=== PATIENT | female | born 1990 ===

== ENCOUNTER 2018-05-04 21:11 | Observation (INO) | payer OTHER ==
[2018-05-04] MEDS ORDERED: MOTRIN 800800 MG/TAB PO (23:12)
[2018-05-04] MEDS ORDERED: TYLENOL 325MG325 MG PO (23:13)
[2018-05-04] MEDS ORDERED: PRENATAL PO (23:14)
[2018-05-04] MEDS ORDERED: BENADRYL50 MG PO (23:15)
--- NOTE | 2018-05-04 23:15 | NUR ---
PT ADMITTED TO ROOM 309. ARTIE JOSHI AWARE PT HERE AND PLANNING ON SEEING PT SHORTLY. PT WAS ASSISTED TO GET COMFORTABLE AND SITUATED. HAS NOTED C/O HEADACHE. IV FLUIDS STARTED. WILL ADMINSITER PRN MEDS SOON ORDER IS AVALIBLE.
[2018-05-04] MEDS ORDERED: BENADRYL25 M2 PO (23:16)
[2018-05-04 23:19] VITALS: BP 143/83; PULSE 78; TEMP 98.5
[2018-05-05 04:49] VITALS: BP 118/68; PULSE 84; TEMP 98.4
--- NOTE | 2018-05-05 05:12 | NUR ---
PT HAD UNEVENTFUL NOC. NEEDED PRN MEDS AT BEDTIME FOR HEADACHE, PAIN WAS RESOLVED AND PT WAS ABLE TO GET SOME SLEEP. NO OTHER ISSUES VOICED OVERNIGHT.
[2018-05-05 06:33] LABS: BASO # 0.1 (0.0-0.2); BASO % 0.7 % (0.0-2.0); EOS # 0.4 (0.0-0.7); EOS % 5.2 % (0-4.0); GRAN # 3.9 (1.4-6.5); HEMOGLOBIN 10.2 g/dl (12.5-16.0); LYMPH # 1.9 (1.2-3.4); LYMPH % 27.6 % (20.0-51.0); MEAN CELL VOLUME 88 fl (80.0-100.0); MEAN CORPUSCULAR HEMOGLOBIN 29 pg (27.0-31.0); MEAN CORPUSCULAR HGB CONC 33 g/dl (33.0-37.0); MEAN PLATELET VOLUME 9.8 fl (7.4-10.4); MONO # 0.5 (0.1-0.6); MONO % 7.3 % (1.7-9.3); PLATELET COUNT 307 K/mm3 (130-400); RED BLOOD COUNT 3.52 M/mm3 (4.10-5.30); REDCELL DISTRIBUTION WIDTH-CV 14.3 % (11.5-14.5)
[2018-05-05 06:37] LABS: HEMATOCRIT 30.8 % (37.0-47.0)
--- NOTE | 2018-05-05 06:45 | NUR ---
Received report from Aleida HARRINGTON. Pt sitting in bed baby. Denies any pain or needs at this time.
[2018-05-05 06:48] LABS: CALCIUM 8.7 mg/dL (8.4-10.2); CREATININE, serum 0.78 (0.52-1.25); POTASSIUM 3.8 mmol/L (3.4-5.0)
--- NOTE | 2018-05-05 08:55 | NUR ---
Pt sitting in bed, infant. Pt denies any pain or headache. States her swelling in her legs and feet are almost gone. Pt is eager to leave and go home. Completed morning assessment. in room with pt.
[2018-05-05 11:24] VITALS: BP 131/82; PULSE 83; TEMP 97.9
[2018-05-05 11:30] LABS: COLLECTION METHOD CLEAN CATCH
--- NOTE | 2018-05-05 11:40 | NUR ---
Family was present, I provided spiritual care and prayed with the patient and family.
[2018-05-05 11:41] LABS: MUCOUS Present /lpf; PH 7 (5-8); SQUAMOUS EPITHELIAL 0-2 /hpf; URINE APPEARANCE Clear; URINE BACTERIA Rare /hpf; URINE BILIRUBIN Negative (NEGATIVE); URINE BLOOD 3+ (NEGATIVE); URINE COLOR Yellow; URINE GLUCOSE Negative (NEGATIVE); URINE KETONE Negative (NEGATIVE); URINE LEUKOCYTE ESTERASE 2+ (NEGATIVE); URINE NITRATE Negative (NEGATIVE); URINE PROTEIN(semi-quant) Negative (NEGATIVE); URINE UROBILINOGEN Negative (NEGATIVE)
--- NOTE | 2018-05-05 12:00 | NUR ---
Plan: Patient plans to return home with family support and support. Assess: SW met with patient, and friend in room. Patient reports that she [place] on [address] Patient indicated that she use the pharmacy on [address]. Patient denies knowing who her PCP is due to it being changed at [facility]. Patient denies having a DPOA and declined setting one up. Patient denies having problems getting medications. Patient declines using or needing any DME. Action: No additional needs identified at this time. Patient denies having any care concerns. Educated patient on resources in the area.
--- NOTE | 2018-05-05 14:49 | NUR ---
Pt lying in bed with eyes closed. Informed family that discharge paperwork is being prepared. Family denies any needs at this time.
--- NOTE | 2018-05-05 15:18 | NUR ---
Pt received discharge paperwork. Questions asked and answered. Pt is gathering personal items and will call when ready to leave.
--- NOTE | 2018-05-05 15:27 | NUR ---
Removed INT to LH. Catheter tip intact, no redness or swelling noted.
--- NOTE | 2018-05-05 15:54 | NUR ---
Pt walked out with family. All belongings taken.
== END 2018-05-05 15:55 | disposition home or self-care (01) ==
LOC: MEDICAL 21:11
PROVIDERS: Nurse Practitioner Family; ADMIT Hospitalist
DX: R51 Headache (principal); R60.0 Localized edema; N39.0 Urinary tract infection, site not specified; R91.8 Other nonspecific abnormal finding of lung field; D64.9 Anemia, unspecified
CPT/HCPCS: G0378; J7030